=== PATIENT | female | born 1960 | race Caucasian/White ===

== ENCOUNTER 2017-12-07 14:36 | Emergency (ER) | payer SELFPAY ==
--- NOTE | 2017-12-07 15:26 | RAD ---
LEFT FOREARM 2 VIEWS: Date: 12/07/17 HISTORY: Forearm pain. COMPARISON: None. FINDINGS: No fracture. No malalignment. Satisfactory appearance of plate and screw fixation of old fracture of the ulna. Soft tissue swelling. IMPRESSION: Dorsal soft tissue swelling. No acute displaced fracture. POS: [facility]
== END 2017-12-07 15:45 | disposition home or self-care (01) ==
LOC: MADERS 14:36
DX: S50.12XA Contusion of left forearm, initial encounter (principal); W22.8XXA Striking against or struck by other objects, initial encounter